=== PATIENT | male | born 1985 | race Caucasian/White ===

== ENCOUNTER 2016-12-11 11:34 | Emergency (ER) | payer MEDICAID, OTHER ==
--- NOTE | 2016-12-11 11:59 | EDPHY ---
H & P Time Seen by Provider: 12/11/16 11:55 Constitutional: Initial Vital Signs Temperature (C) 37.2 C 12/11/16 11:34 Heart Rate 100 12/11/16 11:34 Respiratory Rate 18 12/11/16 11:34 Blood Pressure 138/84 H 12/11/16 11:34 O2 Sat (%) 96 12/11/16 11:34 O2 Delivery Mode Room Air Allergies/Adverse Reactions: No Known Allergies Allergy (Unverified 12/11/16 13:03) Home Medications: Medication Instructions Recorded NK [No Known Home Meds] 12/11/16 Medical Decision Making ED Course/Re-evaluation: CHIEF COMPLAINT: Left ear discomfort, psychosis. HISTORY OF PRESENT ILLNESS: The patient is a 31-year-old homeless male who presents via EMS for left ear discomfort. He reports that he feels that there is a foreign body in the ear and needs a "micrograph of my ears." He is expressing some clearly psychotic ideations. He denies HI or SI. No other medical complaints at this time. REVIEW OF SYSTEMS: A 10 point review of systems was performed and is negative with the exception of the elements mentioned in the history of present illness. PHYSICAL EXAM: HR, BP, O2 Sat, RR. Temp noted General Appearance: Alert, well hydrated, appropriate, and non-toxic appearing. Head: Atraumatic without scalp tenderness or obvious injury Eyes: Pupils equal, round, reactive to light and accommodation, EOMI, no trauma , no injection. Ears: Clear bilaterally, no perforation, normal landmarks. Small scab in left ear canal. Nose: Atraumatic, no rhinorrhea, clear. Throat: There is no erythema or exudates, no lesions, normal tonsils, mucus membranes moist. Neck: Supple, 2+ carotid upstroke, nontender, no lymphadenopathy. Respiratory: No retractions, no distress, no wheezes, and no accessory muscle use. Lungs are clear to auscultation bilaterally. Cardiovascular: Regular rate and rhythm, no murmurs, rubs, or gallops. Bilateral carotid, radial, dorsalis pedis, and posterior tibial pulses intact. Good capillary refill all extremities. Gastrointestinal: Abdomen is soft, nontender, non-distended, no masses, no rebound, no guarding, no peritoneal signs. Musculoskeletal: Normal active ROM of all extremities, atraumatic. Neurological: Alert, appropriate, and interactive. The patient has normal DTRs and non-focal cranial nerves, motor, sensory, and cerebellar exam. Skin: No rashes, good turgor, no nodules on palpation. Past medical history: Compartment syndrome. Past surgical history: Denies. Family history: N/A. Social history: Homeless, student at 53 [employer]. DIFFERENTIAL DIAGNOSIS: The differential diagnosis includes, but is not limited to: psychosis, paranoia , anxiety, depression. MEDICAL DECISION MAKIN-year-old male presents via EMS complaining of ear discomfort. He was initially not on a hold or detainer. On my exam of his left ear I noticed a small scab in his ear canal but no other obvious injury. However, upon hearing this, he stated he needs a "micrograph of both ears." He is clearly psychotic and I have put him on a detainer. Patient is awaiting evaluation by [facility]. 163: Consulted with [facility]. They will place the patient on an M1 Hold and queue him for placement. 2004: Patient accepted at [facility]. - Data Points Laboratory Results: Laboratory Results 12/11/16 11:55 12/11/16 11:55 12/11/16 12/11/16 12/11/16 12:29 11:55 11:55 WBC 6.77 10^3/uL 10^3/uL (3.80-9.50) RBC 5.58 10^6/uL 10^6/uL (4.40-6.38) Hgb 17.2 g/dL g/dL (13.7-17.5) Hct 49.7 % % (40.0-51.0) MCV 89.1 fL fL (81.5-99.8) MCH 30.8 pg pg (27.9-34.1) MCHC 34.6 g/dL g/dL (32.4-36.7) RDW 13.0 % % (11.5-15.2) Plt Count 249 10^3/uL 10^3/uL (150-400) MPV 9.2 fL fL (8.7-11.7) Neut % (Auto) 56.7 % % (39.3-74.2) Lymph % (Auto) 31.9 % % (15.0-45.0) Iron % (Auto) 7.7 % % (4.5-13.0) Eos % (Auto) 3.2 % % (0.6-7.6) Baso % (Auto) 0.4 % % (0.3-1.7) Nucleat RBC Rel Count 0.0 % % (0.0-0.2) Absolute Neuts (auto) 3.83 10^3/uL 10^3/uL (1.70-6.50) Absolute Lymphs (auto) 2.16 10^3/uL 10^3/uL (1.00-3.00) Absolute Monos (auto) 0.52 10^3/uL 10^3/uL (0.30-0.80) Absolute Eos (auto) 0.22 10^3/uL 10^3/uL (0.03-0.40) Absolute Basos (auto) 0.03 10^3/uL 10^3/uL (0.02-0.10) Absolute Nucleated RBC 0.00 10^3/uL 10^3/uL (0-0.01) Immature Gran % 0.1 % % (0.0-1.1) Immature Gran # 0.01 10^3/uL 10^3/uL (0.00-0.10) Sodium 142 mEq/L mEq/L (134-144) Potassium 4.3 mEq/L mEq/L (3.5-5.2) Chloride 105 mEq/L mEq/L (97-110) Carbon Dioxide 23 mEq/l mEq/l (22-31) Anion Gap 14 mEq/L mEq/L (8-16) BUN 13 mg/dL mg/dL (7-23) Creatinine 0.7 mg/dL mg/dL (0.7-1.3) Estimated GFR > 60 Glucose 71 mg/dL mg/dL (70-100) Calcium 9.8 mg/dL mg/dL (8.5-10.4) Salicylates < 1.0 mg/dL L mg/dL (2.0-20.0) Urine Opiates Screen NEGATIVE (NEGATIVE) Acetaminophen < 10 mcg/mL L mcg/mL (10.0-30.0) Urine Barbiturates NEGATIVE (NEGATIVE) Ur Phencyclidine Scrn NEGATIVE (NEGATIVE) Ur Amphetamine Screen NEGATIVE (NEGATIVE) U Benzodiazepines Scrn NEGATIVE (NEGATIVE) Urine Cocaine Screen NEGATIVE (NEGATIVE) U Marijuana (THC) Screen NON-NEGATIVE H (NEGATIVE) Ethyl Alcohol < 10 mg/dL mg/dL (0-10) Medications Given: Discontinued Medications Ibuprofen (Motrin) 600 mg PO EDNOW ONE Stop: 12/11/16 18:39 Last Admin: 12/11/16 18:41 Dose: 600 mg Lorazepam (Ativan) 1 mg PO EDNOW ONE Stop: 12/11/16 19:21 Last Admin: 12/11/16 19:27 Dose: 1 mg Nicotine (Nicoderm Cq) 21 mg TD EDNOW ONE Stop: 12/11/16 14:11 Last Admin: 12/11/16 14:34 Dose: 21 mg Departure - Departure Disposition: [facility] Acute Clinical Impression: Psychosis Qualifiers: Psychosis type: unspecified psychosis type Qualified Code(s): F29 - Unspecified psychosis not due to a substance or known physiological condition Condition: Fair Referrals: Patient,NotPresent [Unknown] - As per Instructions Report Scribed for: Jhonatan Miles Report Scribed by: Hipolito Chen Date of Report: 12/11/16 Time of Report: 12:19
[2016-12-11 12:18] LABS: % IMMATURE GRANULYOCYTES 0.1 % (0.0-1.1); ABSOLUTE IMMATURE GRANULOCYTES 0.01 10^3/uL (0.00-0.10); ADD DIFF? NO; ADD MORPH? NO; ADD SCAN? NO; ATYPICAL LYMPHOCYTE FLAG 10 (0-99); FRAGMENT RBC FLAG 0 (0-99); HEMATOCRIT 49.7 % (40.0-51.0); HEMOGLOBIN 17.2 g/dL (13.7-17.5); LEFT SHIFT FLG 0 (0-99); LIPEMIA HEMOLYSIS FLAG 90 (0-99); MEAN CELL HEMOGLOBIN 30.8 pg (27.9-34.1); MEAN CELL HEMOGLOBIN CONCENTR. 34.6 g/dL (32.4-36.7); MEAN CELL VOLUME 89.1 fL (81.5-99.8); MEAN PLATELET VOLUME 9.2 fL (8.7-11.7); PLATELET CLUMPS FLAG 10 (0-99); PLATELET COUNT 249 10^3/uL (150-400); RED BLOOD CELL COUNT 5.58 10^6/uL (4.40-6.38)
[2016-12-11 12:40] LABS: ANION GAP 14 mEq/L (8-16); CALCIUM 9.8 mg/dL (8.5-10.4); CARBON DIOXIDE 23 mEq/l (22-31); CHLORIDE 105 mEq/L (97-110); CREATININE 0.7 mg/dL (0.7-1.3); ETHANOL SERUM < 10 mg/dL (0-10); GLOMERULAR FILTRATION RATE > 60; GLUCOSE 71 mg/dL (70-100); POTASSIUM 4.3 mEq/L (3.5-5.2); SALICYLATE < 1.0 mg/dL (2.0-20.0); SODIUM 142 mEq/L (134-144)
[2016-12-11] MEDS ORDERED: NICOTINE POLACRILEX 2 MG GUM B PRN (14:10)
[2016-12-11] MEDS ORDERED: NICOTINE 21 MG/24 HR PATCH TD ONE (14:10)
[2016-12-11] MEDS ORDERED: IBUPROFEN 600 MG TAB PO ONE (18:38)
[2016-12-11] MEDS ORDERED: LORazepam 1 MG TAB PO ONE ×2 (19:20→21:35)
[2016-12-11 22:06] VITALS: BP 122/83; PULSE 100; RESP 16; TEMP 98.2; O2SAT 95
== END 2016-12-11 22:03 ==
LOC: EDUNIT#
DX: F29 Unspecified psychosis not due to a substance or known physiological condition (principal)
CPT/HCPCS: 80305; G0480

== ENCOUNTER 2016-12-16 22:39 | Emergency (ER) | payer MEDICAID ==
[2016-12-16] MEDS ORDERED: ACETAMINOPHEN 500 MG TAB PO ONE (22:54)
[2016-12-16] MEDS ORDERED: IBUPROFEN 200 MG TAB PO ONE (22:54)
--- NOTE | 2016-12-16 23:00 | EDPHY ---
H & P Stated Complaint: First Time Seizure HPI/ROS: HPI The patient presents brought in by paramedics for a seizure which was witnessed by bystanders just prior to arrival. The patient remembers walking from a pizza shop to the gas station and says for some reason he was having difficulty walking, he felt lightheaded and then lost consciousness. For about 30-60 seconds he was witnessed to have tonic-clonic activity and then was postictal according to bystanders. There was no tongue biting or urinary or fecal incontinence. When the paramedics arrived, the patient was somewhat confused though was awake and alert. He said he did not want to be placed on a psychiatric hold. Blood glucose was 109. No interventions were performed. The patient says that he feels as if his brain is swelling and has been feeling this way all day. He points to his posterior occipital region and says that his neck also hurts. He does not usually get headaches. He says he has generally felt lightheaded today. He admits to smoking marijuana and drinking a lot of coffee. He has no prior seizure history and denies any family history of seizure. He denies any drug use besides marijuana, he does not take any medications. He was seen in our emergency room on December 11 on an M1 hold for psychosis, he was transferred to [facility]. He said he was there for 6 hours and he discharged. He says this was all a mistake. REVIEW OF SYSTEMS Constitutional: No fever, no chills. Eyes: No discharge. ENT: No sore throat. Cardiovascular: No chest pain, no palpitations. Respiratory: No cough, no shortness of breath. Gastrointestinal: No abdominal pain, no vomiting. Genitourinary: No hematuria. Musculoskeletal: No back pain. Skin: No rashes. Neurological: + headache. PMHx: Healthy Soc Hx: Family lives in [place], he is homeless and stays at a [employer], he used to live in [place] with a girlfriend but they broke up about a year and half ago, marijuana use, cigarette use, denies alcohol use PHYSICAL General Appearance: Alert, no distress Eyes: Pupils equal and round no pallor or injection Head: He has tenderness at his posterior occipital region ENT, Mouth: Mucous membranes moist Respiratory: There are no retractions, lungs are clear to auscultation Cardiovascular: Regular rate and rhythm Gastrointestinal: Abdomen is soft and non-tender, no masses, bowel sounds normal Neurological: A&O, cranial nerves 2-12 intact, 5/5 strength in upper and lower extremities which is symmetric. moves all extremities Skin: Warm and dry, no rashes Musculoskeletal: Neck is supple non tender in the posterior C-spine Extremities: symmetrical, full range of motion Psychiatric: Patient is oriented X 3, there is no agitation Source: Patient, EMS, Old records - Personal History Current Tetanus/Diphtheria Vaccine: Unsure Current Tetanus Diphtheria and Acellular Pertussis (TDAP): Unsure - Medical/Surgical History Hx Asthma: No Hx Chronic Respiratory Disease: No Hx Diabetes: No Hx Cardiac Disease: No Hx Renal Disease: No Hx Cirrhosis: No Hx Alcoholism: No Hx HIV/AIDS: No Hx Splenectomy or Spleen Trauma: No Other PMH: "use to take clonazepam but I feel better not taking meds." - Social History Smoking Status: Unknown if ever smoked Constitutional: Initial Vital Signs Temperature (C) 36.9 C 12/16/16 22:44 Heart Rate 84 12/16/16 22:44 Respiratory Rate 10 L 12/16/16 22:44 Blood Pressure 134/89 H 12/16/16 22:44 O2 Sat (%) 97 12/16/16 22:44 O2 Delivery Mode Room Air Allergies/Adverse Reactions: No Known Allergies Allergy (Unverified 12/11/16 13:03) Home Medications: Medication Instructions Recorded NK [No Known Home Meds] 12/11/16 Medical Decision Making - Diagnostics Imaging: Imaging Impressions Head CT 12/16/16 22:54 Impression: No acute intracranial findings. If symptoms persist and clinical suspicion warrants, consider MRI. Findings discussed with Patsy Centeno MD 12/16/2016 at 23:30. ED Course/Re-evaluation: 1:00 a.m.- The patient was monitored in the emergency room with no further seizure activity. He actually became more awake and alert. His headache totally resolved. Labs were checked and U tox is positive for marijuana which he did admit to using. His ALT was slightly elevated. His CT head was unremarkable. This is likely a first-time seizure, less likely a syncopal event. He has no prior history of seizures on repeat questioning. He has no head trauma. He has no family history of seizures. He says he has been feeling like his usual self over the last few days. He has been drinking a lot of coffee. It is possible that dehydration could have precipitated this event. I think he can be safely discharged with outpatient follow up with Neurology. Differential Diagnosis: This is a 31-year-old male, with possible past psychiatric history given recent visit for psychosis, who presents after 1st time seizure today. He is now complaining of a posterior occipital pressure-like headache. He seems somewhat confused and is slightly slow to respond. Otherwise, his neurologic exam is unremarkable. Differential diagnosis includes intracranial hemorrhage, mass occupying lesion of brain, electrolyte disturbance, drug use. - Data Points Laboratory Results: Laboratory Results 12/16/16 22:47 12/16/16 22:47 12/16/16 12/16/16 12/16/16 23:35 22:47 22:47 WBC 7.04 10^3/uL 10^3/uL (3.80-9.50) RBC 5.36 10^6/uL 10^6/uL (4.40-6.38) Hgb 16.7 g/dL g/dL (13.7-17.5) Hct 48.4 % % (40.0-51.0) MCV 90.3 fL fL (81.5-99.8) MCH 31.2 pg pg (27.9-34.1) MCHC 34.5 g/dL g/dL (32.4-36.7) RDW 12.8 % % (11.5-15.2) Plt Count 277 10^3/uL 10^3/uL (150-400) MPV 9.4 fL fL (8.7-11.7) Neut % (Auto) 37.2 % L % (39.3-74.2) Lymph % (Auto) 46.2 % H % (15.0-45.0) [place] % (Auto) 13.2 % H % (4.5-13.0) Eos % (Auto) 2.4 % % (0.6-7.6) Baso % (Auto) 0.7 % % (0.3-1.7) Nucleat RBC Rel Count 0.0 % % (0.0-0.2) Absolute Neuts (auto) 2.62 10^3/uL 10^3/uL (1.70-6.50) Absolute Lymphs (auto) 3.25 10^3/uL H 10^3/uL (1.00-3.00) Absolute Monos (auto) 0.93 10^3/uL H 10^3/uL (0.30-0.80) Absolute Eos (auto) 0.17 10^3/uL 10^3/uL (0.03-0.40) Absolute Basos (auto) 0.05 10^3/uL 10^3/uL (0.02-0.10) Absolute Nucleated RBC 0.00 10^3/uL 10^3/uL (0-0.01) Immature Gran % 0.3 % % (0.0-1.1) Immature Gran # 0.02 10^3/uL 10^3/uL (0.00-0.10) Sodium 140 mEq/L mEq/L (134-144) Potassium 4.2 mEq/L mEq/L (3.5-5.2) Chloride 102 mEq/L mEq/L (97-110) Carbon Dioxide 28 mEq/l mEq/l (22-31) Anion Gap 10 mEq/L mEq/L (8-16) BUN 13 mg/dL mg/dL (7-23) Creatinine 0.8 mg/dL mg/dL (0.7-1.3) Estimated GFR > 60 Glucose 69 mg/dL L mg/dL (70-100) Calcium 9.9 mg/dL mg/dL (8.5-10.4) Total Bilirubin 0.7 mg/dL mg/dL (0.1-1.4) AST 44 IU/L IU/L (17-59) ALT 77 IU/L H IU/L (21-72) Alkaline Phosphatase 50 IU/L IU/L (38-126) Total Protein 8.1 g/dL g/dL (6.3-8.2) Albumin 5.0 g/dL g/dL (3.5-5.0) Urine Opiates Screen NEGATIVE (NEGATIVE) Urine Barbiturates NEGATIVE (NEGATIVE) Ur Phencyclidine Scrn NEGATIVE (NEGATIVE) Ur Amphetamine Screen NEGATIVE (NEGATIVE) U Benzodiazepines Scrn NEGATIVE (NEGATIVE) Urine Cocaine Screen NEGATIVE (NEGATIVE) U Marijuana (THC) Screen NON-NEGATIVE H (NEGATIVE) Ethyl Alcohol < 10 mg/dL mg/dL (0-10) Medications Given: Discontinued Medications Acetaminophen (Tylenol) 1,000 mg PO EDNOW ONE Stop: 12/16/16 22:55 Last Admin: 12/16/16 22:59 Dose: 1,000 mg Ibuprofen (Motrin) 400 mg PO EDNOW ONE Stop: 12/16/16 22:55 Last Admin: 12/16/16 22:59 Dose: 400 mg Departure - Departure Disposition: Home, Routine, Self-Care Clinical Impression: Seizure Condition: Good Instructions: New-Onset Seizure in Adults (ED) Additional Instructions: Please follow-up with your doctor in the next 1-2 days. I have also given you information for neurology follow-up. You can call to make an appointment to be seen in the next few days. Return to the emergency room if your worse in any way. Referrals: [facility] [Outside] - As per Instructions
[2016-12-16 23:11] LABS: % IMMATURE GRANULYOCYTES 0.3 % (0.0-1.1); ABSOLUTE IMMATURE GRANULOCYTES 0.02 10^3/uL (0.00-0.10); ADD DIFF? NO; ADD MORPH? NO; ADD SCAN? NO; ATYPICAL LYMPHOCYTE FLAG 10 (0-99); FRAGMENT RBC FLAG 0 (0-99); HEMATOCRIT 48.4 % (40.0-51.0); HEMOGLOBIN 16.7 g/dL (13.7-17.5); LEFT SHIFT FLG 0 (0-99); LIPEMIA HEMOLYSIS FLAG 90 (0-99); MEAN CELL HEMOGLOBIN 31.2 pg (27.9-34.1); MEAN CELL HEMOGLOBIN CONCENTR. 34.5 g/dL (32.4-36.7); MEAN CELL VOLUME 90.3 fL (81.5-99.8); MEAN PLATELET VOLUME 9.4 fL (8.7-11.7); PLATELET CLUMPS FLAG 10 (0-99); PLATELET COUNT 277 10^3/uL (150-400); RED BLOOD CELL COUNT 5.36 10^6/uL (4.40-6.38); RED CELL DISTRIBUTION WIDTH 12.8 % (11.5-15.2)
[2016-12-16 23:21] LABS: ALANINE AMINOTRANSFERASE 77 IU/L (21-72); ALKALINE PHOSPHATASE 50 IU/L (38-126); ANION GAP 10 mEq/L (8-16); ASPARTATE AMINOTRANSFERASE 44 IU/L (17-59); BILIRUBIN,TOTAL 0.7 mg/dL (0.1-1.4); CALCIUM 9.9 mg/dL (8.5-10.4); CARBON DIOXIDE 28 mEq/l (22-31); CHLORIDE 102 mEq/L (97-110); CREATININE 0.8 mg/dL (0.7-1.3); ETHANOL SERUM < 10 mg/dL (0-10); GLOMERULAR FILTRATION RATE > 60; GLUCOSE 69 mg/dL (70-100); POTASSIUM 4.2 mEq/L (3.5-5.2); SODIUM 140 mEq/L (134-144); TOTAL PROTEIN 8.1 g/dL (6.3-8.2)
[2016-12-17 00:32] VITALS: BP 123/77; PULSE 84; RESP 12; TEMP 99; O2SAT 96
--- NOTE | 2016-12-17 08:31 | CPEKG ---
Heart Rate: 88 RR Interval: 682 P-R Interval: 148 QRSD Interval: 102 QT Interval: 376 QTC Interval: 455 P Warren: 48 QRS Warren: 21 T Wave Warren: 64 EKG Severity - NORMAL ECG - EKG Impression: SINUS RHYTHM Electronically Signed By: Patsy Centeno 18-Dec-2016 03:44:34
== END 2016-12-17 01:12 | disposition home or self-care (01) ==
LOC: EDUNIT#
DX: R56.9 Unspecified convulsions (principal)
CPT/HCPCS: 80305; G0480

== ENCOUNTER 2017-08-22 15:11 | Emergency (ER) | payer MEDICAID, OTHER ==
[2017-08-22] MEDS ORDERED: LORazepam 2 MG/ML INJ IVP ONE (15:19)
[2017-08-22] MEDS ORDERED: HALOPERIDOL LACT 5 MG/ML INJ IVP ONE (15:19)
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
[2017-08-22 15:31] LABS: % IMMATURE GRANULYOCYTES 0.4 % (0.0-1.1); ABSOLUTE IMMATURE GRANULOCYTES 0.05 10^3/uL (0.00-0.10); ADD DIFF? NO; ADD MORPH? NO; ADD SCAN? NO; ATYPICAL LYMPHOCYTE FLAG 10 (0-99); FRAGMENT RBC FLAG 20 (0-99); HEMATOCRIT 47.5 % (40.0-51.0); HEMOGLOBIN 16.9 g/dL (13.7-17.5); LEFT SHIFT FLG 0 (0-99); LIPEMIA HEMOLYSIS FLAG 90 (0-99); MEAN CELL HEMOGLOBIN 31.6 pg (27.9-34.1); MEAN CELL HEMOGLOBIN CONCENTR. 35.6 g/dL (32.4-36.7); MEAN PLATELET VOLUME 9.3 fL (8.7-11.7); PLATELET CLUMPS FLAG 10 (0-99); PLATELET COUNT 259 10^3/uL (150-400); RED BLOOD CELL COUNT 5.34 10^6/uL (4.40-6.38); RED CELL DISTRIBUTION WIDTH 12.2 % (11.5-15.2)
[2017-08-22 15:42] LABS: ANION GAP 18 mEq/L (8-16); CALCIUM 9.8 mg/dL (8.5-10.4); CARBON DIOXIDE 21 mEq/l (22-31); CHLORIDE 107 mEq/L (97-110); CREATININE 0.8 mg/dL (0.7-1.3); ETHANOL SERUM 165 mg/dL (0-10); GLOMERULAR FILTRATION RATE > 60; GLUCOSE 89 mg/dL (70-100); POTASSIUM 4.4 mEq/L (3.5-5.2); SALICYLATE < 1.0 mg/dL (2.0-20.0); SODIUM 146 mEq/L (134-144)
[2017-08-23] MEDS ORDERED: OLANZapine DISINTEGR 10 MG TAB PO ONE (10:26)
[2017-08-23] MEDS ORDERED: LORazepam 1 MG TAB PO ONE (10:49)
[2017-08-23] MEDS ORDERED: clonazePAM 1 MG TAB PO ONE ×2 (15:10→21:36)
[2017-08-23] MEDS ORDERED: CEPHALEXIN 500 MG CAP PO ONE ×3 (16:10→21:46)
[2017-08-23 16:21] VITALS: RESP 16
[2017-08-23] MEDS ORDERED: IBUPROFEN 600 MG TAB PO ONE (16:26)
[2017-08-23] MEDS ORDERED: NICOTINE 21 MG/24 HR PATCH TD ONE (20:39)
[2017-08-23] MEDS ORDERED: diphenhydrAMINE 25 MG CAP PO ONE ×2 (23:29→23:30)
[2017-08-24] MEDS ORDERED: CEPHALEXIN 500 MG CAP PO ONE ×2 (05:00→05:03)
[2017-08-24 07:53] VITALS: BP 95/88; PULSE 100; TEMP 97.9; O2SAT 96
[2017-08-24] MEDS ORDERED: clonazePAM 1 MG TAB ONE (07:57)
[2017-08-24] MEDS ORDERED: clonazePAM 1 MG TAB PO ONE (07:58)
--- NOTE | 2017-08-24 11:41 | ASDISCHSUM ---
Discharge Information Plan Status:Psych Placement/Petitioned Medically Cleared to Leave: Discharge Date:08/24/2017 08:40 AM CM D/C Disposition:Other Psych, Not [place] ADT D/C Disposition:Other Psych, Not [facility] Projected Discharge Date:08/24/2017 08:40 AM Transportation at D/C:ALS/BLS Discharge Delay Reason: Follow-Up Date:08/24/2017 08:40 AM Discharge Slot: Final Diagnosis: Placement Information Patient Contact Information Contact Name:[place] Relationship:Father Address: Home Phone: City: [facility] Phone: [facility] Code: Email: Financial Information Financial Class:HMO and PPO Plans Primary Plan Desc:OMID CLARKE Primary Plan Number:[id number] Secondary Plan Desc: Secondary Plan Number: Assessment Information LACE LACE Acuity / Level of Care Answers: No. Emergency dept visits in Answers: 3 last 6 months Score: 3 Date Signed: 08/24/2017 11:40 AM Electronically Signed By:Marcia Taylor RN Intervention Information
== END 2017-08-24 08:40 ==
DX: F23 Brief psychotic disorder (principal)
CPT/HCPCS: 80305; 96374; G0480; J1630; J2060

== ENCOUNTER 2017-10-25 13:59 | Emergency (ER) | payer OTHER ==
--- NOTE | 2017-10-25 13:53 | EDPHY ---
H & P Constitutional: Initial Vital Signs Temperature (C) 37.3 C 10/25/17 14:08 Heart Rate 108 H 10/25/17 14:08 Respiratory Rate 20 10/25/17 14:08 Blood Pressure 144/93 H 10/25/17 14:08 O2 Sat (%) 93 10/25/17 14:08 O2 Delivery Mode Room Air Allergies/Adverse Reactions: No Known Allergies Allergy (Verified 10/25/17 14:08) Home Medications: Medication Instructions Recorded Clonazepam 08/22/17 Abilify 30mg 08/23/17 Gabapentin 08/23/17 Hydroxyzine HCl 08/23/17 Cephalexin [Keflex (RX)] 500 mg PO TID #30 cap 08/24/17 Medical Decision Making ED Course/Re-evaluation: CHIEF COMPLAINT: Medical clearance to alf HISTORY OF PRESENT ILLNESS: The patient is a homeless 31 y/o male with a history of schizophrenia and methamphetamine abuse arriving via EMS initially as a medical clearance for alf. He denies any complaints at this time or recent illicit drug use. He's been off his psychiatric medications for an unknown amount of time. He is quiet and not forthcoming with additional information. He is not on a mental health hold. Per PD, patient has escalated quickly in the past. During his last ER visit here on 08/22/17 he was combative with paranoid delusions and ultimately placed at [facility] for inpatient psychiatric care. REVIEW OF SYSTEMS: A 10 point review of systems was performed and is negative with the exception of the elements mentioned in the history of present illness. PHYSICAL EXAM: HR, BP, O2 Sat, RR. Temp noted General Appearance: Alert, well hydrated, appropriate, and non-toxic appearing. Flushed. Head: Atraumatic without scalp tenderness or obvious injury Eyes: Pupils equal, round, reactive to light and accommodation, EOMI, no trauma , no injection. Ears: Clear bilaterally, no perforation, normal landmarks Nose: Atraumatic, no rhinorrhea, clear. Throat: There is no erythema or exudates, no lesions, normal tonsils, mucus membranes moist. Neck: Supple, nontender, no lymphadenopathy. Respiratory: No retractions, no distress, no wheezes, and no accessory muscle use. Lungs are clear to auscultation bilaterally. Cardiovascular: Regular rate and rhythm, no murmurs, rubs, or gallops. Good capillary refill all extremities. Gastrointestinal: Abdomen is soft, nontender, non-distended, no masses, no rebound, no guarding, no peritoneal signs. Musculoskeletal: Normal active ROM of all extremities, atraumatic. Neurological: Alert, appropriate, and interactive. The patient has non-focal cranial nerves, motor, sensory, and cerebellar exam. Tremulous. Skin: No rashes, good turgor, no nodules on palpation. Past medical history: Schizophrenia, bipolar disorder, substance abuse Past surgical history: Declines Family history: Noncontributory Social history: Homeless. Recently housed at [facility]. DIFFERENTIAL DIAGNOSIS: The differential diagnosis for the patient's symptoms included but was not limited to psychosis due to schizophrenia and/or methamphetamine use, off medications, bipolar disorder, social situation. MEDICAL DECISION MAKING: Patient is not appropriate for alf at this time and will require psychiatric evaluation. PD has not placed him under arrest at this time. Patient is in no acute distress and is hemodynamically stable. We are awaiting psychiatric team' s evaluation. Patient has known history of psychiatric disorders and is here for evaluation. 10mg PO Zyprexa ordered. EtOH serum level 105. Marijuana on tox screen. Patient is medically clear for psychiatric evaluation. (Jhonatan Miles) Other Provider: Patient signed out to me at [address] Miles, awaiting placement. Patient remained stable over course of my shift. Signed out to Dr. Lanier at 2300. ( Tadeo Black) 2300 Care assumed by me from Dr. Black at start of shift pending placement. [id number] patient has been accepted to [facility] by Dr. Garcia. I have completed the EMT A [place] (Dennis Lanier) - Data Points Laboratory Results: Laboratory Results 10/25/17 14:20 10/25/17 14:20 10/25/17 15:30 Urine Opiates Screen NEGATIVE (NEGATIVE) Urine Barbiturates NEGATIVE (NEGATIVE) Ur Phencyclidine Scrn NEGATIVE (NEGATIVE) Ur Amphetamine Screen NEGATIVE (NEGATIVE) U Benzodiazepines Scrn NEGATIVE (NEGATIVE) Urine Cocaine Screen NEGATIVE (NEGATIVE) U Marijuana (THC) Screen NON-NEGATIVE H (NEGATIVE) Medications Given: Discontinued Medications Sodium Chloride (Ns) 1,000 mls @ 0 mls/hr IV ONCE ONE PRN Reason: Wide Open Stop: 10/25/17 14:56 Last Admin: 10/25/17 14:56 Dose: 1,000 mls Olanzapine (Zyprexa Zydis) 10 mg PO EDNOW ONE Stop: 10/25/17 14:08 Last Admin: 10/25/17 14:21 Dose: 10 mg Departure - Departure Disposition: Other Psych, Not [facility] Clinical Impression: Medication discontinued without order Schizophrenia Qualifiers: Schizophrenia type: other Qualified Code(s): F20.89 - Other schizophrenia Condition: Fair Referrals: Patient,NotPresent [Primary Care Provider] - As per Instructions Report Scribed for: Jhonatan Miles Report Scribed by: Becky Mcmahon Date of Report: 10/25/17 Time of Report: 14:07
[2017-10-25] MEDS ORDERED: OLANZapine DISINTEGR 5 MG TAB PO ONE (14:07)
[2017-10-25 14:23] LABS: PLATELET COUNT 347 10^3/uL (150-400)
[2017-10-25] MEDS ORDERED: NS 1,000 ML IV ONE (14:55)
[2017-10-25 18:33] VITALS: O2SAT 96
[2017-10-25 23:16] VITALS: RESP 14
[2017-10-26 03:08] VITALS: BP 128/96; PULSE 99; TEMP 98.4
== END 2017-10-26 03:05 ==
LOC: EDUNIT#
DX: Z91.14 Patient's other noncompliance with medication regimen (principal); E86.9 Volume depletion, unspecified
CPT/HCPCS: 80305; G0480